=== PATIENT | male | born 1940 | race Caucasian/White ===

== ENCOUNTER 2023-04-12 07:38 | Day surgery (SDC) | payer OTHER ==
[2023-04-10 16:11] VITALS: BMI 24.7
[2023-04-12] MEDS ORDERED: MIDAZOLAM HCL 2 MG/2 ML SINGLE DOSE VIAL ONE (08:11)
[2023-04-12] MEDS ORDERED: PROPOFOL 20 ML ONE (08:11)
[2023-04-12] MEDS ORDERED: BUPIVACAINE HCL/PF 2.5 MG/ML - 30 ML VIAL IJ ONE (08:18)
[2023-04-12] MEDS ORDERED: ceFAZolin SODIUM 1 GM VIAL ONE (08:57)
[2023-04-12] MEDS ORDERED: KETOROLAC TROMETHAMINE 30 MG/1 ML VIAL ONE (08:57)
[2023-04-12] MEDS ORDERED: DEXAMETHASONE SOD PHOSPHATE 4 MG/1 ML VIAL ONE (08:57)
[2023-04-12] MEDS ORDERED: ONDANSETRON 4 MG/2 ML VIAL ONE (08:57)
[2023-04-12 09:27] VITALS: TEMP 97.1
[2023-04-12 09:29] VITALS: BP 128/72; PULSE 62; RESP 19
== END 2023-04-12 09:50 | disposition home or self-care (01) ==
LOC: FASU 07:38
PROVIDERS: ATTEND Orthopaedic Surgery Hand Surgery
PROC: 0JBK0ZZ Excision of Left Hand Subcutaneous Tissue and Fascia, Open Approach (ICD-10-PCS; principal; 2023-04-12 08:42)
DX: L98.0 Pyogenic granuloma (principal)